=== PATIENT | male | born 1960 | race Caucasian/White ===

== ENCOUNTER 2022-04-01 10:00 | Day surgery (SDC) | payer BC ==
[~2022-04-01 10:00] MED LIST: LACTATED RINGERS 1,000 ML IV SCH
[2022-04-01 11:03] VITALS: TEMP 97
[2022-04-01] MEDS ORDERED: PROPOFOL 10 MG/ML 20 ML VIAL IV ONE (12:23)
--- NOTE | 2022-04-01 12:39 | P.PCN ---
Date of Procedure: 04/01/22 Procedure(s) Performed: BRIEF HISTORY: Patient is a 62-year-old pleasant 8 male scheduled for an elective colonoscopy as a part of gaining for colorectal rectal neoplasia. PROCEDURE PERFORMED: Colonoscopy. PREOPERATIVE DIAGNOSIS: Screening for colon cancer. IV sedation per Anesthesia. PROCEDURE: After informed consent was obtained, the patient, was brought into the endoscopy unit. IV sedation was administered by Anesthesia under continuous monitoring. Digital rectal examination was normal. Initially the Olympus CF-160 flexible video colonoscope was then inserted in the rectum, gradually advanced into the cecum without any difficulty. Careful examination was performed as the scope was gradually being withdrawn. Ileocecal valve and the appendiceal orifice were visualized and appeared normal. Prep was fair. Mucosa of the cecum, ascending colon, transverse colon, descending colon, sigmoid colon, and rectum appeared normal. Retroflexion was performed in the rectum and no lesions were seen. The patient tolerated the procedure well. IMPRESSION: Normal-appearing colon from rectum to cecum no evidence of colorectal neoplasia . RECOMMENDATIONS: Findings of this examination were discussed with the patient as well as his family. He was advised to have a repeat screening colonoscopy in 10 years..
[2022-04-01 12:45] VITALS: BP 91/54; PULSE 56; RESP 12
== END 2022-04-01 13:13 | disposition home or self-care (01) ==
LOC: ORWHC2ENDO 10:00
PROVIDERS: ATTEND Internal Medicine Gastroenterology
DX: Z12.11 Encounter for screening for malignant neoplasm of colon (principal)
CPT/HCPCS: 45378; J2704

== ENCOUNTER 2024-06-09 08:48 | Day surgery (SDC) | payer BC, OTHER ==
[2024-06-08 09:03] VITALS: BMI 21.7
[~2024-06-09 08:48] MED LIST changes: +ALPRAZolam 0.25 MG TAB PO PRN; +ALPRAZolam 0.5 MG TAB PO PRN; -LACTATED RINGERS 1,000 ML IV SCH; +NITROGLYCERIN SL TABS 0.4 MG TAB SUBLINGUAL PRN
[2024-06-09] MEDS: IV FLUID CONTINUATION 1,000 ML IV ONE (09:22)
[2024-06-09] MEDS: SODIUM CHLORIDE 0.9% 1,000 ML in EMPTY BAG 1 BAG IV SCH ×2 (09:22→14:25)
[2024-06-09] MEDS: ASPIRIN 325 MG TAB PO STA (09:33)
[2024-06-09] MEDS: ATORVASTATIN 80 MG TAB PO STA (09:33)
[2024-06-09 10:01] LABS: Basophils % (A) 1 %; Eosinophils # (A) 0.2 k/uL (0-0.7); Eosinophils % (A) 4 %; HCT 38.6 % (39.0-53.0); HGB 13.1 gm/dL (13.0-17.5); Lymphocytes # (A) 1.1 k/uL (1.0-4.8); Lymphocytes % (A) 18 %; MCH 33.2 pg (25.0-35.0); MCV 97.4 fL (80.0-100.0); Mean Platelet Volume 7.9; Monocytes # (A) 0.3 k/uL (0-1.0); Monocytes % (A) 5 %; Neutrophils # (A) 4.4 k/uL (1.3-7.7); Neutrophils % (A) 71 %; Platelet Count 224 k/uL (150-450); RBC 3.96 m/uL (4.30-5.90); RDW 12.9 % (11.5-15.5); WBC 6.2 k/uL (3.8-10.6)
[2024-06-09 10:14] LABS: African American GFR (CKD) >90 (>60 ml/min/1.73 sqM); Anion Gap 4 mmol/L; Blood Urea Nitrogen 21 mg/dL (9-20); Calcium 9.3 mg/dL (8.4-10.2); Carbon Dioxide 30 mmol/L (22-30); Chloride 103 mmol/L (98-107); Glucose 96 mg/dL (74-99); Non-African American GFR(CKD) 88 (>60 ml/min/1.73 sqM); Potassium 4.5 mmol/L (3.5-5.1); Sodium 137 mmol/L (137-145)
[2024-06-09] MEDS: MIDAZOLAM 2 MG/2 ML VIAL IVP ONE ×2 (10:38→12:48)
[2024-06-09] MEDS: LIDOCAINE 1% INJ 10MG/ML (20 ML MDV) SQ ONE (10:41)
[2024-06-09] MEDS: fentaNYL (PF) 50 MCG/ML 2 ML AMP IVP ONE (10:41)
[2024-06-09] MEDS: IOPAMIDOL-370 100ML BTL INJ ONE ×2 (10:45→13:10)
--- NOTE | 2024-06-09 11:56 | CC ---
CARDIAC CATHETERIZATION REPORT INDICATION: Abnormal stress test with ischemic cardiomyopathy showing an ejection fraction of 35%. PROCEDURE NOTE: After obtaining informed consent, left heart catheterization and coronary angiogram were performed via the right radial artery using standard Chari catheters. The patient tolerated the procedure well without any obvious immediate complications. The patient received moderate sedation. Total sedation time was 10 minutes. Right radial artery access was obtained using Seldinger technique. A 6-Ghanaian sheath was placed. Catheters and wires were floated into the ascending aorta under fluoroscopic guidance. The patient received verapamil and heparin per protocol. FINDINGS: 1. HEMODYNAMICS: The left ventricular end-diastolic pressure is 8 to 10 mm. There is no significant gradient across the aortic valve. 2. Left ventriculogram: Left ventriculogram is not performed. 3. ANGIOGRAPHIC DATA: a.Right coronary artery: Right coronary artery is a normal-sized vessel and is free of stenosis. b.Left main coronary artery is a normal-sized vessel and is free of stenosis. Divides into left anterior descending coronary artery and circumflex coronary artery. LAD and its branches are free of significant stenosis. Circumflex coronary artery shows a focal 70% to 80% stenosis. CONCLUSION: A 70% to 80% focal stenosis involving circumflex coronary artery. PLAN: The patient will undergo angioplasty with stent placement of the same. I discussed these issues with the patient. He understands and is in agreement with the plans. The patient is hypotensive at rest. I am going to decrease the dose of losartan on discharge and we will continue to hold back on beta blockers because of the bradycardia. MMODL / IJN: [id number] /
[2024-06-09] MEDS: HEPARIN SODIUM,PORCINE (1 ML) 2,500 UNIT in SODIUM CHLORIDE 0.9% 250 ML IRRIGATION PRN (12:52)
[2024-06-09] MEDS: HEPARIN SODIUM,PORCINE 10,000 UNIT in SODIUM CHLORIDE 0.9% 1,000 ML IRRIGATION PRN (12:52)
[2024-06-09] MEDS: HEPARIN SODIUM 1,000 UN/ML (10ML VL) IVP ONE (12:57)
[2024-06-09] MEDS: TICAGRELOR 90 MG TAB PO ONE (12:59)
[2024-06-09] MEDS: NITROGLYCERIN 1000MCG/10ML SYRINGE INTRACORON ONE (13:06)
[2024-06-09] MEDS: SODIUM CHLORIDE 0.9% 1,000 ML IV ONE (13:10)
[2024-06-09] MEDS ORDERED: ZOLPIDEM 5 MG TAB PO PRN (13:10)
[2024-06-09] MEDS ORDERED: NITROGLYCERIN SL TABS 0.4 MG TAB SUBLINGUAL PRN (13:10)
[2024-06-09] MEDS ORDERED: ATROPINE SULFATE 0.1 MG/ML 10ML SYRINGE IV PRN (13:10)
[2024-06-09] MEDS ORDERED: RX INFO: IV CONTRAST WAS GIVEN 1 EACH MISC MISCELLANE PRN (13:10)
[2024-06-09] MEDS ORDERED: MAG HYDROX/AL HYDROX/SIMETH 30 ML CUP PO PRN (13:10)
--- NOTE | 2024-06-09 13:14 | P.PCN ---
Date of Procedure: 06/09/24 Operative Findings: PERCUTANEOUS CORONARY INTERVENTION Performing physician Vikas Berger M.D. Procedure Performed: 1. Successful stenting of the ramus intermedius using 5 x 15 mm Xience drug- eluting stent with an excellent angiographic results. 2. Adjunctive use of IVUS Indication: Symptomatic 64-year-old gentleman who underwent a heart catheterization earlier by Dr. Botello and was found to have severe disease involving the ramus intermedius Approach: Right radial artery Complications: None Level of Sedation: Moderate with a sedation length of 19 minutes Procedure Discussion: Please refer to diagnostic heart catheterization was performed. To be anticoagulation was initiated using heparin with continuous ACT monitoring. Subsequently I did engage the left main using JL 3.5 guiding catheter with I did wired there is intermedius using a run-through wire. I did after that IVUS which showed a diameter between 3 to 3.5 mm. The artery was not calcified. I did balloon angioplasty using 2.5 mm balloon before I deployed 3.5 x 15 mm Xience KEVIN where the stent was positioned under fluoroscopy guidance and deployed under fluoroscopy guidance. The final angiogram showed excellent angiographic results and the procedure was performed with no complication Postprocedure Management: 1. Dual antiplatelet therapy using aspirin and Brilinta for at least 6 months 2. Aggressive cholesterol control 3. Risk factors modification
[2024-06-09] MEDS: TICAGRELOR 90 MG TAB PO SCH (19:36)
[2024-06-09 23:57] VITALS: RESP 16
[2024-06-10 07:49] VITALS: BP 117/58; PULSE 63; TEMP 97.2
[2024-06-10] MEDS: ASPIRIN 81 MG PO SCH (07:51)
[2024-06-10] MEDS: LOSARTAN 25 MG TAB PO SCH (07:51)
[2024-06-10] MEDS: ATORVASTATIN 20 MG TAB PO SCH (07:51)
[2024-06-10] MEDS: OXYBUTYNIN XL 5 MG TAB.ER.24 PO SCH (07:51)
[2024-06-10] MEDS: ISOSORBIDE MONONITRATE ER 30 MG TAB.ER.24H PO SCH (07:51)
[2024-06-10] MEDS ORDERED: NON FORMULARY DRUG (Aspirin Ec 81 MG Tablet) PO SCH (09:00)
--- NOTE | 2024-06-10 10:56 | P.DS ---
Providers Attending physician: Francisco Javier Botello Consults: 06/09/24 13:10 Consult Physician Routine Consulting Provider: [facility] Consult Reason/Comments: Post Interventional patient Do you want consulting provider notified?: Already Contacted Primary care physician: Wilfrido Ashraf Hospital Course: This is a 64-year-old male who underwent cardiac catheterization with Dr. Botello revealing 70 to 80% focal stenosis involving the circumflex coronary artery. Patient underwent stenting by Dr. Berger. Patient is doing well post procedure with no complications noted. No complaints of chest pain or shortness of breath. Vital signs are stable. Cath site with pulse present and no hematoma noted. The patient was deemed stable for discharge home today from a cardiac standpoint. Patient will be discharged on dual antiplatelet therapy with aspirin and Brilinta for 6 to 12 months. Additionally he will continue on statin therapy with LDL goal less than 70. Please see EMR for further hospital course details. Discharge diagnosis Coronary artery disease, status post stenting of the circumflex Ischemic cardiomyopathy, 35% Nurse practitioner note has been reviewed by physician. Signing provider agrees with the documented findings, assessment, and plan of care documented by DA[employer] FARM MANAGER as a scribe. Plan - Discharge Summary Discharge Rx Participant: Yes New Discharge Prescriptions: New Ticagrelor [Brilinta] 90 mg PO BID #60 tab Nitroglycerin Sl Tabs [Nitrostat] 0.4 mg SUBLINGUAL Q5M PRN #25 tab PRN Reason: Chest Pain Continue Isosorbide Mononitrate ER [Imdur] 30 mg PO QAM Aspirin EC [Ecotrin Low Dose] 81 mg PO QAM Atorvastatin [Lipitor] 20 mg PO QAM Losartan Potassium 25 mg PO QAM No Action Ibuprofen 600 mg PO TID PRN PRN Reason: Pain oxyBUTYnin chloride [oxyBUTYnin chloride ER] 5 mg PO QAM Discharge Medication List Atorvastatin [Lipitor] 20 mg PO QAM 03/28/22 [History] Ibuprofen 600 mg PO TID PRN 03/28/22 [History] Aspirin EC [Ecotrin Low Dose] 81 mg PO QAM 06/08/24 [History] Isosorbide Mononitrate ER [Imdur] 30 mg PO QAM 06/08/24 [History] Losartan Potassium 25 mg PO QAM 06/08/24 [History] oxyBUTYnin chloride [oxyBUTYnin chloride ER] 5 mg PO QAM 06/08/24 [History] Nitroglycerin Sl Tabs [Nitrostat] 0.4 mg SUBLINGUAL Q5M PRN #25 tab 06/10/24 [Rx] Ticagrelor [Brilinta] 90 mg PO BID #60 tab 06/10/24 [Rx] Follow up Appointment(s)/Referral(s): Francisco Javier Botello MD [STAFF PHYSICIAN] - 06/16/24 2:15 pm (FOLLOW UP APPOINTMENT MADE. ) Patient Instructions/Handouts: After Radial Heart Catheterization (GEN)
== END 2024-06-10 11:34 | disposition home or self-care (01) ==
LOC: CATHCVL 08:48 → 3SCARD 13:08 → CATHCVL 06-10 11:34
PROVIDERS: ATTEND Internal Medicine Cardiovascular Disease
DX: I25.5 Ischemic cardiomyopathy (principal); I95.9 Hypotension, unspecified; Z95.5 Presence of coronary angioplasty implant and graft; F17.210 Nicotine dependence, cigarettes, uncomplicated; Z79.82 Long term (current) use of aspirin; E78.2 Mixed hyperlipidemia; Z79.02 Long term (current) use of antithrombotics/antiplatelets; Z79.899 Other long term (current) drug therapy
CPT/HCPCS: 92978; 93458; 80048; 85025; 99152; C9600; C1769 ×2; C1894; C1753; C1874; C1725; C1887; J2250; J1644 ×4; J2003; J3010; Q9967; J2305

== ENCOUNTER 2024-08-10 14:36 | Observation (INO) | payer OTHER ==
--- NOTE | 2024-08-10 14:52 | ED ---
Chest Pain HPI - General Source: patient, RN notes reviewed Mode of arrival: ambulatory Limitations: no limitations - History of Present Illness MD Complaint: chest pain <Tameka Mcqueen - Last Filed: 08/10/24 14:50> - General Source: patient, RN notes reviewed, old records reviewed <Alber Truong - Last Filed: 08/11/24 00:05> - General Chief Complaint: Chest Pain Stated Complaint: Chest pain Time Seen by Provider: 08/10/24 14:45 - History of Present Illness Initial Comments: Quick Note: This is a 64-year-old male who presents to the emergency department for chest pain. States that 2 days ago at work he developed a sharp centralized chest pain that lasted for a minute. The pain has since resolved, however since then he has felt weak, nauseous, and has no appetite. He did have a cardiac stent placed earlier this year. (Tameka Mcqueen) Patient is a 64-year-old male presents emergency department complaining of chest pain. He has a history of cardiac stents within the last few months. Also history of hyperlipidemia, heart failure. Follows with Dr. Mccoy. Presents emergency department complaining of chest pain for the last 2 days. States it is on the left side of his chest. Had some neck radiation originally with that as well as nausea which is since resolved. He is still having a dull ache that is approximately 1-2 out of 10. States when it was more severe it was higher than 5. B go away but it is not improved. Has also been feeling weak. Denies any fevers, chills, cough. Recent exposure to influenza. Presents for further evaluation at this time.Denies any radiation of the pain currently. (Alber Truong) - Related Data Home Medications Medication Instructions Recorded Confirmed Atorvastatin [Lipitor] 20 mg PO DAILY@59903/28/22 08/10/24 Ibuprofen 600 mg PO DAILY@59903/28/22 08/10/24 Aspirin EC [Ecotrin Low Dose] 81 mg PO DAILY@59906/08/24 08/10/24 Isosorbide Mononitrate ER [Imdur] 30 mg PO DAILY@59906/08/24 08/10/24 Losartan Potassium 25 mg PO DAILY@59906/08/24 08/10/24 oxyBUTYnin chloride [oxyBUTYnin 5 mg PO DAILY@0600 06/08/24 08/10/24 chloride ER] Ibuprofen [Motrin] 600 mg PO DAILY PRN 08/10/24 08/10/24 Nitroglycerin Sl Tabs [Nitrostat] 0.4 mg SL Q5M PRN 08/10/24 08/10/24 Ticagrelor [Brilinta] 90 mg PO BID@0900,2100 08/10/24 08/10/24 Allergies Allergy/AdvReac Type Severity Reaction Status Date / Time No Known Allergies Allergy Verified 08/10/24 18:37 Review of Systems ROS Other: All systems not noted in ROS Statement are negative. <Tameka Mcqueen - Last Filed: 08/10/24 14:50> ROS Other: All systems not noted in ROS Statement are negative. <Alber Truong - Last Filed: 08/11/24 00:05> ROS Statement: Those systems with pertinent positive or pertinent negative responses have been documented in the HPI. Review of Systems: CONST: Denies fever EYES: Denies blurry vision ENT: Denies nasal congestion C/V: Endorses chest pain RESP: Denies shortness of breath GI: Denies abdominal pain : Denies dysuria SKIN: Denies rash. MSK: Denies joint pain. NEURO: Denies headache (Alber Truong) EKG Findings - EKG Comments: EKG Findings:: 12-lead Electrocardiogram Interpretation Note. EKG was reviewed and interpreted by myself. 12-lead ECG performed at 1451 is interpreted by me as revealing sinus bradycardia at a rate of 50 beats per minute. [place] is normal. TN interval is 160 ms, QRS durations 104 ms, QTc is 408 ms.. There were no ST or T wave abnormalities to suggest myocardial ischemia or injury. R wave progression across the precordium was satisfactory. By my interpretation this EKG is non-diagnostic for acute ischemia. - EKG Results: EKG: interpreted by ERMD <Alber Truong - Last Filed: 08/11/24 00:05> Past Medical History Past Medical History: Heart Failure, Hyperlipidemia, Liver Disease Additional Past Medical History / Comment(s): See Dr. Mccoy H+P. elevated liver enzymes. voiding frequently at night. fingers are cool at times makes pulse ox low. arthritis in fingers. Hx shingles. "Apparently he has had a heart attack, but we don't know when." History of Any Multi-Drug Resistant Organisms: None Reported Past Surgical History: Back Surgery Additional Past Surgical History / Comment(s): Surgery to lt eye r/t injury. Colonoscopy. Past Anesthesia/Blood Transfusion Reactions: No Reported Reaction Additional Past Anesthesia/Blood Transfusion Reaction / Comment(s): no blood transfusions to date. Past Psychological History: No Psychological Hx Reported Smoking Status: Former smoker Past Alcohol Use History: Occasional Past Drug Use History: Marijuana - Past Family History Father Family Medical History: Hypertension Additional Family Medical History / Comment(s): vascular issues Mother Family Medical History: Thyroid Disorder Additional Family Medical History / Comment(s): goiter. <Tameka Mcqueen - Last Filed: 08/10/24 14:50> General Exam Limitations: no limitations <Tameka Mcqueen - Last Filed: 08/10/24 14:50> <Alber Truong - Last Filed: 08/11/24 00:05> - General Exam Comments Initial Comments: Visual Physical Exam Vital signs reviewed General: Well-appearing, nontoxic, no acute distress. Head: Normocephalic, atraumatic Eyes: PERRLA, EOMI ENT: Airway patent Chest: Nonlabored breathing Skin: No visual rash, normal skin tone Neuro: Alert and oriented 3 Musculoskeletal: No gross abnormalities (Tameka Mcqueen) General: Appears in no acute distress. HEAD: Normal with no signs of head trauma. EYES: EOMI ENT: Hearing grossly intact, normal oropharynx. RESPIRATORY: Clear breath sounds bilaterally. No wheezes, rales, or rhonchi. C/V: Regular rate and rhythm. S1 and S2 auscultated, no edema, peripheral pulses 2+ and intact throughout ABD: Abd is soft, nontender, nondistended EXT: No obvious deformity. SKIN: No rashes or lesions observed on exposed skin. NEURO: Alert and oriented x 4. (Alber Truong) Course Vital Signs 08/10/24 08/10/24 08/10/24 14:44 17:21 18:28 Temperature 98.4 F Pulse Rate 60 46 L 53 L Pulse Rate [ Pulse Oximetery ] Respiratory 18 18 18 Rate Blood Pressure 108/61 111/68 119/72 Blood Pressure [Left Arm] O2 Sat by Pulse 95 98 97 Oximetry 08/10/24 08/10/24 22:03 22:25 Temperature 98.2 F 97.5 F L Pulse Rate 61 Pulse Rate [ 51 L Pulse Oximetery ] Respiratory 18 20 Rate Blood Pressure 126/80 Blood Pressure 135/70 [Left Arm] O2 Sat by Pulse 97 100 Oximetry Chest Pain [facility] <Tameka Mcqueen - Last Filed: 08/10/24 14:50> <Alber Truong - Last Filed: 08/11/24 00:05> - [facility] I performed the QuickNote portion of this chart. Signed Tameka Mcqueen PA-C. (Tameka Mcqueen) Was pt. sent in by a medical professional or institution (ALECIA Jurado, HR SPECIALIST, urgent care, hospital, or assisted...) When possible be specific @ -No Did you speak to anyone other than the patient for history (EMS, parent, family, police, friend...)? What history was obtained from this source @ -No Did you review nursing and triage notes (agree or disagree)? Why? @ -I reviewed and agree with nursing and triage notes Were old charts reviewed (outside hosp., previous admission, EMS record, old EKG, old radiological studies, urgent care reports/EKG's, assisted records)? Report findings @ -Old charts reviewed including prior EKGs. Compared to EKG from May 2024 with today's EKG. No obvious dynamic changes Differential Diagnosis (chest pain, altered mental status, abdominal pain women, abdominal pain men, vaginal bleeding, weakness, fever, dyspnea, syncope, headache, dizziness, GI bleed, back pain, seizure, CVA, palpatations, mental health, musculoskeletal)? @ -Differential Chest Pain: Stable Angina, Unstable Angina, STEMI, NSTEMI Aortic Dissection, Pneumothorax, Musculoskeletal, Esophageal Spasm GERD, Cholecystitis, Pancreatitis, Zoster, this is not meant to be an all-inclusive list. EKG interpreted by me (3pts min.). @ -As above X-rays interpreted by me (1pt min.). @ -Chest x-ray shows no obvious acute cardiopulmonary process. CT interpreted by me (1pt min.). @ -None done U/S interpreted by me (1pt. min.). @ -None done What testing was considered but not performed or refused? (CT, X-rays, U/S, labs)? Why? @ -None What meds were considered but not given or refused? Why? @ -None Did you discuss the management of the patient with other professionals (professionals i.e. , PA, HR SPECIALIST, lab, RT, psych nurse, social worker psychiatric, customs examiner, teacher, gift officer, director of casework)? Give summary @ -Discussed the case with the admitting provider, Dr. Pan who accepted the admission. Was smoking cessation discussed for >3mins.? @ -No Was critical care preformed (if so, how long)? @ -No Were there social determinants of health that impacted care today? How? (Homelessness, low income, unemployed, alcoholism, drug addiction, transportation, low edu. Level, literacy, decrease access to med. care, intermediate, rehab)? @ -No Was there de-escalation of care discussed even if they declined (Discuss DNR or withdrawal of care, Hospice)? DNR status @ -No What co-morbidities impacted this encounter? (DM, HTN, Smoking, COPD, CAD, Cancer, CVA, ARF, Chemo, Hep., AIDS, mental health diagnosis, sleep apnea, morbid obesity)? @ -CAD, recent cardiac stenting Was patient admitted / discharged? Hospital course, mention meds given and route, prescriptions, significant lab abnormalities, going to OR and other pertinent info. @ -Patient presents emergency department for chest pain in the setting of recent cardiac stents in the last few months. Pain started 2 days ago and was more severe and currently is mild and substernal in nature. No radiation currently. EKG shows no signs of acute ischemia. We will obtain cardiac workup. Patient will be administered nitroglycerin as well as 324 mg of aspirin. Patient was in agreement this plan. EKG shows no signs of acute ischemia. Chest x-ray unremarkable. Laboratory studies unremarkable including undetectable troponin. Patient's chest pain did nearly resolved with the sublingual nitroglycerin therefore Nitropaste will be applied. I discussed results with patient. Due to multiple risk factors, and heart score being at least moderate, patient will be admitted to observation cardiac telemetry for cardiology evaluation. I discussed the case with the admitting provider, Dr. Pan who accepted the admission. Undiagnosed new problem with uncertain prognosis? @ -No Drug Therapy requiring intensive monitoring for toxicity (Heparin, Nitro, Insulin, Cardizem)? @ -No Were any procedures done? @ -No Diagnosis/symptom? @ -Chest pain Acute, or Chronic, or Acute on Chronic? @ -Acute Uncomplicated (without systemic symptoms) or Complicated (systemic symptoms)? @ -Complicated Side effects of treatment? @ -No Exacerbation, Progression, or Severe Exacerbation? @ -No Poses a threat to life or bodily function? How? (Chest pain, [place], [place], pneumonia, PE, COPD, DKA, ARF, appy, cholecystitis, CVA, Diverticulitis, Homicidal, Suicidal, threat to staff... and all critical care pts) @ -Potentially, yes (Alber Truong) Disposition <Tameka Mcqueen - Last Filed: 08/10/24 14:50> Time of Disposition: 17:45 <Alber Truong - Last Filed: 08/11/24 00:05> Clinical Impression: Chest pain Disposition: ADMITTED IP TO THIS HOSP Condition: Stable
--- NOTE | 2024-08-10 16:14 | XR ---
EXAMINATION TYPE: XR chest 2V DATE OF EXAM: 08/10/2024 CLINICAL INDICATION: Male, 64 years old with history of Chest Pain, TECHNIQUE: Frontal and lateral views of the chest are obtained. COMPARISON: None FINDINGS: There is no focal air space opacity, pleural effusion, or pneumothorax seen. The cardiac silhouette size is within normal limits. Old posterior lateral left seventh rib fracture is present. IMPRESSION: No acute process. [facility], , 08/10/2024 4:12 PM
[2024-08-10] MEDS: SODIUM CHLORIDE 0.9% 1,000 ML IV ONE (16:28)
[2024-08-10] MEDS: ASPIRIN 81 MG PO STA (16:29)
[2024-08-10] MEDS: NITROGLYCERIN SL TABS 0.4 MG TAB SUBLINGUAL STA (16:29)
[2024-08-10 16:41] LABS: Basophils % (A) 0 %; Eosinophils # (A) 0.3 k/uL (0-0.7); Eosinophils % (A) 4 %; HCT 41.2 % (39.0-53.0); HGB 13.5 gm/dL (13.0-17.5); Lymphocytes # (A) 1.3 k/uL (1.0-4.8); Lymphocytes % (A) 16 %; MCH 32.3 pg (25.0-35.0); MCHC 32.8 g/dL (31.0-37.0); MCV 98.4 fL (80.0-100.0); Mean Platelet Volume 7.5; Monocytes # (A) 0.4 k/uL (0-1.0); Monocytes % (A) 5 %; Neutrophils # (A) 5.9 k/uL (1.3-7.7); Neutrophils % (A) 73 %; Platelet Count 221 k/uL (150-450); RBC 4.19 m/uL (4.30-5.90); WBC 8.1 k/uL (3.8-10.6)
[2024-08-10 16:50] LABS: INR 1.1 (<1.2); Partial Thromboplastin Time 22.4 sec (22.0-30.0); Prothrombin Time 11.5 sec (10.0-12.5)
[2024-08-10 16:58] LABS: ALT 29 U/L (4-49); AST 25 U/L (17-59); African American GFR (CKD) >90 (>60 ml/min/1.73 sqM); Albumin 3.9 g/dL (3.5-5.0); Alkaline Phosphatase 38 U/L (38-126); Anion Gap 5 mmol/L; Blood Urea Nitrogen 20 mg/dL (9-20); Calcium 9.2 mg/dL (8.4-10.2); Carbon Dioxide 27 mmol/L (22-30); Chloride 104 mmol/L (98-107); Glucose 98 mg/dL (74-99); Non-African American GFR(CKD) >90 (>60 ml/min/1.73 sqM); Potassium 3.9 mmol/L (3.5-5.1); Sodium 136 mmol/L (137-145); Total Bilirubin 0.7 mg/dL (0.2-1.3); Total Protein 6.6 g/dL (6.3-8.2)
[2024-08-10 17:15] LABS: Influenza A Not Detected (Not Detectd); Influenza B Not Detected (Not Detectd); RSV Not Detected (Not Detectd)
[2024-08-10] MEDS: NITROGLYCERIN OINT 1 INCH/GM PACKET TOPICAL SCH (17:22)
[2024-08-10] MEDS ORDERED: NALOXONE 0.4 MG/ML 1 ML VIAL IV PRN (17:55)
[2024-08-10] MEDS ORDERED: IBUPROFEN 600 MG TAB PO PRN (21:08)
[2024-08-10] MEDS: TICAGRELOR 90 MG TAB PO SCH (21:56)
[2024-08-11] MEDS: ATORVASTATIN 20 MG TAB PO SCH (06:08)
[2024-08-11] MEDS: ASPIRIN 81 MG PO SCH (06:08)
[2024-08-11] MEDS: ISOSORBIDE MONONITRATE ER 30 MG TAB.ER.24H PO SCH (06:08)
[2024-08-11] MEDS: LOSARTAN 25 MG TAB PO SCH (06:08)
[2024-08-11] MEDS: IBUPROFEN 600 MG TAB PO SCH (06:09)
[2024-08-11] MEDS: OXYBUTYNIN XL 5 MG TAB.ER.24 PO SCH (06:10)
[2024-08-11 07:40] VITALS: BP 89/46; PULSE 54; RESP 16; TEMP 98
[2024-08-11 08:40] LABS: Basophils # (A) 0.05 X 10*3/uL (0.00-0.10); Basophils % (A) 0.8 %; Eosinophils # (A) 0.43 X 10*3/uL (0.04-0.35); Eosinophils % (A) 7.2 %; HCT 39.8 % (39.6-50.0); HGB 13.4 g/dL (13.0-17.0); Lymphocytes % (A) 26.7 %; MCH 33.6 pg (27.0-32.0); MCHC 33.7 g/dL (32.0-37.0); MCV 99.7 FL (80.0-97.0); Mean Platelet Volume 10.3 FL (9.5-12.2); Monocytes # (A) 0.53 X 10*3/uL (0.20-1.00); Monocytes % (A) 8.8 %; NRBC Per 100 WBC 0 X 10*3/uL (0.00-0.01); Neutrophils # (A) 3.36 X 10*3/uL (1.80-7.70); Neutrophils % (A) 56.2 %; Platelet Count 193 X 10*3/uL (140-440); RBC 3.99 X 10*6/uL (4.40-5.60); RDW 13.2 % (11.5-14.5); WBC 5.99 X 10*3/uL (4.50-10.00)
[2024-08-11 09:44] LABS: ALT 25 U/L (10-49); AST 20 U/L (14-35); Albumin 3.7 g/dL (3.8-4.9); Albumin/Globulin Ratio 1.48 Ratio (1.60-3.17); Alkaline Phosphatase 39 U/L (41-126); BUN/Creat Ratio 18.88 Ratio (12.00-20.00); Blood Urea Nitrogen 15.1 mg/dL (9.0-27.0); Calcium 8.5 mg/dL (8.7-10.3); Carbon Dioxide 23.2 mmol/L (21.6-31.8); Chloride 106 mmol/L (96-109); Globulin 2.5 g/dL (1.6-3.3); Glucose 102 mg/dL (70-110); Potassium 4.1 mmol/L (3.5-5.5); Sodium 140 mmol/L (135-145); Total Bilirubin 0.4 mg/dL (0.3-1.2); Total Protein 6.2 g/dL (6.2-8.2)
--- NOTE | 2024-08-11 09:44 | P.CRDCN ---
History of Present Illness History of present illness: HISTORY OF PRESENT ILLNESS: This is a 64-year-old male with a past medical history significant for coronary artery disease with previous stenting, hypertension, and hyperlipidemia. Patient follows in the office with Dr. Botello. We have been asked to see the patient in consultation for chest pain. Patient examined at the bedside. Patient presented to the hospital for chief complaint of chest discomfort. Patient states that he was working outside when he began to have chest discomfort. The patient's pain appears to be musculoskeletal in nature. At the time of examination he denies any chest pain or shortness of breath. Vital signs are stable. DIAGNOSTICS: - EKG reveals sinus mechanism with no signs of acute ischemia. - Chest xray negative for acute process - Laboratory data: WBC 5.99. Hemoglobin 13.4. Platelet count 193. Sodium 136. Potassium 3.9. BUN 20. Creatinine 0.88. Troponin negative x 3. - Current home cardiac medications include Brilinta 90 mg twice a day, losartan 25 mg daily, Imdur 30 mg daily, Lipitor 20 mg daily, aspirin 81 mg daily - Cardiac catheterization history: 06/09/2024 with stenting of the ramus intermedius REVIEW OF SYSTEMS: At the time of my exam: CONSTITUTIONAL: Denies fever or chills. HEENT: Denies blurred vision, vision changes, or eye pain. Denies hemoptysis CARDIOVASCULAR: Denies chest pain. Denies orthopnea. Denies PND. Denies palpitations RESPIRATORY: Denies shortness of breath. GASTROINTESTINAL: Denies abdominal pain. Denies nausea or vomiting. HEMATOLOGIC: Denies bleeding disorders. GENITOURINARY: Denies any blood in urine. SKIN: Denies pruitis. Denies rash. PHYSICAL EXAM: VITAL SIGNS: Reviewed. GENERAL: Well-developed in no acute distress. HEENT: Head is normocephalic. Pupils are equal, round. Sclerae anicteric. Mucous membranes of the mouth are moist. Neck supple. No JVD or thyromegaly LUNGS: Respirations even and unlabored. Lungs essentially clear to auscultation bilaterally. HEART: Regular rate and rhythm. S1 and S2 heard. ABDOMEN: Soft. Nondistended. Nontender. EXTREMITIES: Normal range of motion. No clubbing or cyanosis. Peripheral pulses intact. No lower extremity edema NEUROLOGIC: Awake and alert. Oriented x 3. ASSESSMENT: Chest pain, appears musculoskeletal in nature, troponin negative x 3 Coronary artery disease with previous stenting of the ramus intermedius, 06/09/2024 Ischemic cardiomyopathy, 35% Hypertension Hyperlipidemia PLAN: An acute coronary event has been ruled out Resume home cardiac medications No further inpatient recommendations from a cardiac standpoint Patient may be discharged home today and follow-up in the office with Dr. Botello Nurse practitioner note has been reviewed by physician. Signing provider agrees with the documented findings, assessment, and plan of care documented by TICKET TAKER as a scribe. Past Medical History Past Medical History: Heart Failure, Hyperlipidemia, Liver Disease Additional Past Medical History / Comment(s): See Dr. Darius De La Cruz. elevated liver enzymes. voiding frequently at night. arthritis in fingers. Hx shingles. "Apparently he has had a heart attack, but we don't know when." recent stent placement with janae. History of Any Multi-Drug Resistant Organisms: None Reported Past Surgical History: Back Surgery, Heart Catheterization With Stent Additional Past Surgical History / Comment(s): Surgery to lt eye r/t injury. Colonoscopy. Past Anesthesia/Blood Transfusion Reactions: No Reported Reaction Additional Past Anesthesia/Blood Transfusion Reaction / Comment(s): no blood transfusions to date. Date of Last Stent Placement:: 07/10/2024 Past Psychological History: No Psychological Hx Reported Smoking Status: Former smoker Past Alcohol Use History: Occasional Additional Past Alcohol Use History / Comment(s): smoked for 45 yrs 1ppd, 2022. Drinks a beer x2-3 night. About 12 beers a week. Past Drug Use History: Marijuana Additional Drug Use History / Comment(s): pt smokes marijauna daily - Past Family History Father Family Medical History: Hypertension Additional Family Medical History / Comment(s): vascular issues Mother Family Medical History: Thyroid Disorder Additional Family Medical History / Comment(s): goiter. Medications and Allergies Home Medications Medication Instructions Recorded Confirmed Type Atorvastatin [Lipitor] 20 mg PO DAILY@0600 03/28/22 08/10/24 History Ibuprofen 600 mg PO DAILY@0600 03/28/22 08/10/24 History Aspirin EC [Ecotrin Low Dose] 81 mg PO DAILY@0600 06/08/24 08/10/24 History Isosorbide Mononitrate ER [Imdur] 30 mg PO DAILY@0600 06/08/24 08/10/24 History Losartan Potassium 25 mg PO DAILY@0600 06/08/24 08/10/24 History oxyBUTYnin chloride [oxyBUTYnin 5 mg PO DAILY@0600 06/08/24 08/10/24 History chloride ER] Ibuprofen [Motrin] 600 mg PO DAILY PRN 08/10/24 08/10/24 History Nitroglycerin Sl Tabs [Nitrostat] 0.4 mg SL Q5M PRN 08/10/24 08/10/24 History Ticagrelor [Brilinta] 90 mg PO BID@0900,2100 08/10/24 08/10/24 History Allergies Allergy/AdvReac Type Severity Reaction Status Date / Time No Known Allergies Allergy Verified 08/10/24 18:37 Physical Exam Vitals: Vital Signs Temp Pulse Pulse Resp BP BP BP 08/11/24 07:10 98.0 F 54 L 16 89/46 08/11/24 01:25 97.4 F L 62 18 100/59 08/10/24 23:00 51 L 08/10/24 22:25 97.5 F L 51 L 20 135/70 08/10/24 22:03 98.2 F 61 18 126/80 08/10/24 18:28 53 L 18 119/72 08/10/24 17:21 46 L 18 111/68 08/10/24 14:44 98.4 F 60 18 108/61 Pulse Ox 08/11/24 07:10 99 08/11/24 01:25 98 08/10/24 23:00 08/10/24 22:25 100 08/10/24 22:03 97 08/10/24 18:28 97 08/10/24 17:21 98 08/10/24 14:44 95 Intake and Output 08/10/24 08/11/24 08/11/24 22:59 06:59 14:59 Other: # Voids 2 Weight 77.111 kg Results 08/11/24 05:03 08/10/24 16:23 Cardiac Enzymes 08/10/24 08/10/24 08/10/24 Range/Units 16:23 16:23 19:41 AST 25 (17-59) U/L Troponin I <0.012 <0.012 (0.000-0.034) ng/mL 08/10/24 Range/Units 22:30 AST (17-59) U/L Troponin I <0.012 (0.000-0.034) ng/mL Coagulation 08/10/24 Range/Units 16:23 PT 11.5 (10.0-12.5) sec APTT 22.4 (22.0-30.0) sec CBC 08/10/24 08/11/24 Range/Units 16:23 05:03 WBC 8.1 5.99 (3.8-10.6) k/uL RBC 4.19 L 3.99 L (4.30-5.90) m/uL Hgb 13.5 13.4 (13.0-17.5) gm/dL Hct 41.2 39.8 (39.0-53.0) % Plt Count 221 193 (150-450) k/uL Comprehensive Metabolic Panel 08/10/24 Range/Units 16:23 Sodium 136 L (137-145) mmol/L Potassium 3.9 (3.5-5.1) mmol/L Chloride 104 (98-107) mmol/L Carbon Dioxide 27 (22-30) mmol/L BUN 20 (9-20) mg/dL Creatinine 0.88 (0.66-1.25) mg/dL Glucose 98 (74-99) mg/dL Calcium 9.2 (8.4-10.2) mg/dL AST 25 (17-59) U/L ALT 29 (4-49) U/L Alkaline Phosphatase 38 (38-126) U/L Total Protein 6.6 (6.3-8.2) g/dL Albumin 3.9 (3.5-5.0) g/dL Current Medications Generic Name Dose Route Start Last Admin Trade Name Freq PRN Reason Stop Dose Admin Aspirin 81 mg 08/11/24 06:00 08/11/24 06:08 Aspirin 81 Mg PO 81 mg DAILY@0600 [facility] Administration Atorvastatin Calcium 20 mg 08/11/24 06:00 08/11/24 06:08 Atorvastatin 20 Mg Tab PO 20 mg DAILY@0600 [facility] Administration Ibuprofen 600 mg 08/11/24 06:00 08/11/24 06:09 Ibuprofen 600 Mg Tab PO Not Given DAILY@0600 [facility] Ibuprofen 600 mg 08/10/24 21:08 Ibuprofen 600 Mg Tab PO DAILY PRN Pain Isosorbide Mononitrate 30 mg 08/11/24 06:00 08/11/24 06:08 Isosorbide Mononitrate Er 30 Mg Tab.Er.24h PO 30 mg DAILY@0600 [facility] Administration Losartan Potassium 25 mg 08/11/24 06:00 08/11/24 06:08 Losartan 25 Mg Tab PO 25 mg DAILY@0600 [facility] Administration Naloxone HCl 0.2 mg 08/10/24 17:55 Naloxone 0.4 Mg/Ml 1 Ml Vial IV Q2M PRN Opioid Reversal Nitroglycerin 0.5 inch 08/10/24 17:15 08/11/24 09:31 Nitroglycerin Oint 1 Inch/Gm Packet TOPICAL Not Given Q8HR [facility] Oxybutynin Chloride 5 mg 08/11/24 06:00 08/11/24 06:10 Oxybutynin Xl 5 Mg Tab.Er.24 PO 5 mg DAILY@0600 [facility] Administration Ticagrelor 90 mg 08/10/24 21:30 08/11/24 09:31 Ticagrelor 90 Mg Tab PO 90 mg BID@0900,2100 [facility] Administration Intake and Output 08/10/24 08/11/24 08/11/24 22:59 06:59 14:59 Other: # Voids 2 Weight 77.111 kg 08/11/24 05:03 08/10/24 16:23
--- NOTE | 2024-08-11 11:17 | P.DS ---
Providers Date of admission: 08/10/24 17:55 Attending physician: Cooper Pan MD Consults: 08/10/24 17:55 Consult Physician Routine Consulting Provider: [facility] Consult Reason/Comments: chest pain Do you want consulting provider notified?: Yes Primary care physician: Wilfrido Ashraf Plan - Discharge Summary New Discharge Prescriptions: Continue Isosorbide Mononitrate ER [Imdur] 30 mg PO DAILY@0600 Aspirin EC [Ecotrin Low Dose] 81 mg PO DAILY@0600 Ticagrelor [Brilinta] 90 mg PO BID@0900,2099 Atorvastatin [Lipitor] 20 mg PO DAILY@0600 Ibuprofen 600 mg PO DAILY@0600 oxyBUTYnin chloride [oxyBUTYnin chloride ER] 5 mg PO DAILY@0600 Losartan Potassium 25 mg PO DAILY@0600 Ibuprofen [Motrin] 600 mg PO DAILY PRN PRN Reason: Pain Nitroglycerin Sl Tabs [Nitrostat] 0.4 mg SL Q5M PRN PRN Reason: Chest Pain Discharge Medication List Atorvastatin [Lipitor] 20 mg PO DAILY@0600 03/28/22 [History] Ibuprofen 600 mg PO DAILY@0600 03/28/22 [History] Aspirin EC [Ecotrin Low Dose] 81 mg PO DAILY@0600 06/08/24 [History] Isosorbide Mononitrate ER [Imdur] 30 mg PO DAILY@0600 06/08/24 [History] Losartan Potassium 25 mg PO DAILY@0600 06/08/24 [History] oxyBUTYnin chloride [oxyBUTYnin chloride ER] 5 mg PO DAILY@0600 06/08/24 [History] Ibuprofen [Motrin] 600 mg PO DAILY PRN 08/10/24 [History] Nitroglycerin Sl Tabs [Nitrostat] 0.4 mg SL Q5M PRN 08/10/24 [History] Ticagrelor [Brilinta] 90 mg PO BID@0900,2100 08/10/24 [History] Follow up Appointment(s)/Referral(s): Wilfrido Ashraf [Primary Care Provider] - 1-2 days Patient Instructions/Handouts: Chest Pain (DC) Discharge Disposition: HOME SELF-CARE
--- NOTE | 2024-08-11 11:18 | P.HPIM ---
History of Present Illness H&P Date: 08/11/24 Chief Complaint: Chest pain Patient is a 64-year-old male with a history of CAD status post stent on 06/09/2024, hypertension and hyperlipidemia presents to the ER yesterday with complaint of midsternal chest pain which he describes as stabbing type, 8 out of 10, nonradiating, constant, not associated with nausea or vomiting or diaphoresis. Patient states that he was at work when he experienced the pain and was worried and came to the ER for further evaluation. He recently had a PCI of the ramus intermedius on 06/09/[address] Botello. Patient denies any shortness of breath, swelling of the legs, numbness or weakness upper lower extremities. At time of interview, patient is experiencing 1 out of 10 minimal chest pain. Patient denies any recent upper respiratory tract infection. Initial lab work shows WBC 8.1, hemoglobin 13.5, platelet count 221, sodium 136, potassium 3.9, creatinine 0.88, BUN 20, AST 25, ALT 29, troponin <0.012 (trending flat <0.012, <0.012). Chest x-ray shows no acute cardiopulmonary process. EKG shows sinus bradycardia with ventricular rate of 50 bpm, [place] intervals 160 ms, QRS duration 104 ms, QTc [address]-T wave changes noted. Vital signs on arrival temperature 98.4 F, pulse rate 60, respiratory 18, blood pressure 108/61, oxygen saturation 95% on room air Review of systems: Pertinent positives and negatives as discussed in HPI, a complete review of systems was performed and all other systems are negative. Physical examination: Vital signs reviewed General: non toxic, no distress, appears at stated age, normal weight Derm: no unusual rashes/lesions, warm Head: atraumatic, normocephalic, symmetric Eyes: EOMI, no lid lag, anicteric sclera, pupils equal round reactive to light ENT: Nose and ears atraumatic Neck: No cervical lymphadenopathy, trachea midline, supple Mouth: no lip lesion, mucus membranes moist Cardiovascular: S1S2 reg, no murmur, positive dorsalis pedis pulse bilateral, no edema Lungs: CTA bilateral, no rhonchi, no rales, no accessory muscle use Abdominal: soft, nontender to palpation, no guarding Ext: muscle strength 5 out of 5 in all 4 extremities grossly, no gross muscle atrophy, no contractures, Neuro: CN II-XI grossly intact, no gross focal neuro deficits Psych: Alert, oriented, appropriate affect Assessment/Plan: This is a Patient is a 64-year-old male with a history of CAD status post stent on 06/09/2024, hypertension and hyperlipidemia presents to the ER yesterday with complaint of midsternal chest pain . Case was discussed with the Emergency Room provider and decision was made to admit the patient for chest pain, rule out ACS Labs and images: Initial lab work shows WBC 8.1, hemoglobin 13.5, platelet count 221, sodium 136, potassium 3.9, creatinine 0.88, BUN 20, AST 25, ALT 29, troponin <0.012 (trending flat <0.012, <0.012). Chest x-ray shows no acute cardiopulmonary process. EKG shows sinus bradycardia with ventricular rate of 50 bpm, [place] intervals 160 ms, QRS duration 104 ms, QTc [address]-T wave changes noted. Active: #Chest pain, rule out ACS Low heart score with the risk of Mace of 0.9 to 1.7% Patient received aspirin 325 mg in ED Continue with aspirin 81 mg Oxygen therapy as needed Nitroglycerin sublingual as needed Resume Lipitor 20 mg p.o. daily, Imdur 30 mg p.o. daily, Cozaar 25 mg p.o. daily, Brilinta 90 mg p.o. twice daily Consult cardiology Continue cardiac monitoring Heart healthy diet Order lipid panel and TSH Chronic conditions: Hypertension, hyperlipidemia, CAD status post stenting Resume home medications DVT prophylaxis: SCDs GI prophylaxis: None F: None none E: Replete as needed N: Heart healthy diet A: Ambulatory The patient is admitted with an anticipated less than than 2 midnight stay for evaluation of chest pain, rule out ACS CODE STATUS: Full code Discussed with: Patient Anticipated discharge place: Pending clinical course Dictation was produced using [employer] dictation software. Please excuse any grammatical, word or spelling errors. Attestation/ Cremator Note: Attestation to History and physical, Participation I saw and evaluated the patient with the Resident, and I reviewed and discussed the patient with the Resident and agree with the Resident's findings and plans as documented above., management reviewed and discussed, I agree with findings & plan, Provider Signature : INOCENCIA WANG MD Past Medical History Past Medical History: Heart Failure, Hyperlipidemia, Liver Disease Additional Past Medical History / Comment(s): See Dr. Darius De La Cruz. elevated liver enzymes. voiding frequently at night. arthritis in fingers. Hx shingles. "Apparently he has had a heart attack, but we don't know when." recent stent placement with tumma. History of Any Multi-Drug Resistant Organisms: None Reported Past Surgical History: Back Surgery, Heart Catheterization With Stent Additional Past Surgical History / Comment(s): Surgery to lt eye r/t injury. Colonoscopy. Past Anesthesia/Blood Transfusion Reactions: No Reported Reaction Additional Past Anesthesia/Blood Transfusion Reaction / Comment(s): no blood transfusions to date. Date of Last Stent Placement:: 07/10/2024 Past Psychological History: No Psychological Hx Reported Smoking Status: Former smoker Past Alcohol Use History: Occasional Additional Past Alcohol Use History / Comment(s): smoked for 45 yrs 1ppd, 2022. Drinks a beer x2-3 night. About 12 beers a week. Past Drug Use History: Marijuana Additional Drug Use History / Comment(s): pt smokes marijauna daily - Past Family History Father Family Medical History: Hypertension Additional Family Medical History / Comment(s): vascular issues Mother Family Medical History: Thyroid Disorder Additional Family Medical History / Comment(s): goiter. Medications and Allergies Home Medications Medication Instructions Recorded Confirmed Type Atorvastatin [Lipitor] 20 mg PO DAILY@0600 03/28/22 08/10/24 History Ibuprofen 600 mg PO DAILY@0600 03/28/22 08/10/24 History Aspirin EC [Ecotrin Low Dose] 81 mg PO DAILY@0606/08/24 08/10/24 History Isosorbide Mononitrate ER [Imdur] 30 mg PO DAILY@00 06/08/24 08/10/24 History Losartan Potassium 25 mg PO DAILY@59906/08/24 08/10/24 History oxyBUTYnin chloride [oxyBUTYnin 5 mg PO DAILY@00 06/08/24 08/10/24 History chloride ER] Ibuprofen [Motrin] 600 mg PO DAILY PRN 08/10/24 08/10/24 History Nitroglycerin Sl Tabs [Nitrostat] 0.4 mg SL Q5M PRN 08/10/24 08/10/24 History Ticagrelor [Brilinta] 90 mg PO BID@0900,2100 08/10/24 08/10/24 History Allergies Allergy/AdvReac Type Severity Reaction Status Date / Time No Known Allergies Allergy Verified 08/10/24 18:37 Physical Exam Vitals: Vital Signs Temp Pulse Pulse Resp BP BP BP 08/11/24 07:10 98.0 F 54 L 16 89/46 08/11/24 01:25 97.4 F L 62 18 100/59 08/10/24 23:00 51 L 08/10/24 22:25 97.5 F L 51 L 20 135/70 08/10/24 22:03 98.2 F 61 18 126/80 08/10/24 18:28 53 L 18 119/72 08/10/24 17:21 46 L 18 111/68 08/10/24 14:44 98.4 F 60 18 108/61 Pulse Ox 08/11/24 07:10 99 08/11/24 01:25 98 08/10/24 23:00 08/10/24 22:25 100 08/10/24 22:03 97 08/10/24 18:28 97 08/10/24 17:21 98 08/10/24 14:44 95 Intake and Output 08/10/24 08/11/24 08/11/24 22:59 06:59 14:59 Intake Total 360 Balance 360 Intake: Oral 360 Other: # Voids 2 Weight 77.111 kg Results CBC & Chem 7: 08/11/24 05:03 08/11/24 05:03 Labs: Abnormal Lab Results - Last 24 Hours (Table) 08/10/24 08/10/24 08/11/24 Range/Units 16:23 16:23 05:03 RBC 4.19 L 3.99 L (4.30-5.90) m/uL MCV 99.7 H (80.0-97.0) FL MCH 33.6 H (27.0-32.0) pg Eosinophils # 0.43 H (0.04-0.35) X 10*3/uL Sodium 136 L (137-145) mmol/L Calcium (8.7-10.3) mg/dL Alkaline Phosphatase (41-126) U/L Albumin (3.8-4.9) g/dL Albumin/Globulin Ratio (1.60-3.17) Ratio 03// Range/Units 05:03 RBC (4.30-5.90) m/uL MCV (80.0-97.0) FL MCH (27.0-32.0) pg Eosinophils # (0.04-0.35) X 10*3/uL Sodium (137-145) mmol/L Calcium 8.5 L (8.7-10.3) mg/dL Alkaline Phosphatase 39 L (41-126) U/L Albumin 3.7 L (3.8-4.9) g/dL Albumin/Globulin Ratio 1.48 L (1.60-3.17) Ratio Thrombosis Risk Factor Assmnt - Choose All That Apply Any of the Below Risk Factors Present?: Yes Other Risk Factors: Yes Each Risk Factor Represents 2 Points: Age 61-74 years Other congenital or acquired thrombophilia - If yes, enter type in comment: No Thrombosis Risk Factor Assessment Total Risk Factor Score: 2 Thrombosis Risk Factor Assessment Level: Low Risk
--- NOTE | 2024-08-11 11:20 | P.DS ---
Providers Date of admission: 08/10/24 17:55 Attending physician: Cooper Pan MD Consults: 08/10/24 17:55 Consult Physician Routine Consulting Provider: [facility] Consult Reason/Comments: chest pain Do you want consulting provider notified?: Yes Primary care physician: Wilfrido Ashraf Hospital Course: Discharge Diagnosis: #Chest pain, ACS rule out Hospital Course: Patient is a 64-year-old male with a history of CAD status post stent on 06/09/2024, hypertension and hyperlipidemia presents to the ER yesterday with complaint of midsternal chest pain which he describes as stabbing type, 8 out of 10, non radiating, constant, not associated with nausea or vomiting or diaphoresis. Patient states that he was at work when he experienced the pain and was worried and came to the ER for further evaluation. He recently had a PCI of the ramus intermedius on 06/09/[address] Botello. Patient denies any shortness of breath, swelling of the legs, numbness or weakness upper lower extremities. At time of interview, patient is experiencing 1 out of 10 minimal chest pain. Patient denies any recent upper respiratory tract infection. Initial lab work shows WBC 8.1, hemoglobin 13.5, platelet count 221, sodium 136, potassium 3.9, creatinine 0.88, BUN 20, AST 25, ALT 29, troponin <0.012 (trending flat <0.012, <0.012). Chest x-ray shows no acute cardiopulmonary process. EKG shows sinus bradycardia with ventricular rate of 50 bpm, [place] intervals 160 ms, QRS duration 104 ms, QTc [address]-T wave changes noted. Vital signs on arrival temperature 98.4 F, pulse rate 60, respiratory 18, blood pressure 108/61, oxygen saturation 95% on room air Cardiology was consulted. Acute coronary syndrome has been ruled out. Patient will follow-up with Dr. Botello at his office. No changes to medications have been made. Patient advised to continue with his home medications as directed. Discharge disposition: Home with self-care Vital signs reviewed. Gen: in no apparent distress, resting comfortably in bed Eyes: PERRLA, EOMI, no scleral injection or icterus HENT: normocephalic, atraumatic, good hearing acuity, moist mucous membranes Neck: full range of motion Resp: CTAB, no rales, rhonchi, or wheezes CVS: normal S1 and S2, no murmurs, rubs or gallops, no edema GI: soft, NTTP, ND, no hepatosplenomegaly : no suprapubic tenderness, no CVAT, valentine catheter is not present MSK: no clubbing, no cyanosis, no noted contractures of extremities Skin: no noted rashes, petechiae; temperature of skin is appropriate Neuro: moving all extremities without signs of weakness, CN II-XII intact Psych: cooperative, euthymic mood, insight and judgment intact Dictation was produced using [employer] dictation software. Please excuse any grammatical, word or spelling errors. Attestation/ Roll Dough Divider Note: Attestation to D/C Summary, Participation I saw and evaluated the patient with the Resident, and I reviewed and discussed the patient with the Resident and agree with the Resident's findings and plans as documented above, management reviewed and discussed, I agree with findings & plan, Provider Signature - INOCENCIA WANG MD Patient Condition at Discharge: Stable Plan - Discharge Summary New Discharge Prescriptions: Continue Isosorbide Mononitrate ER [Imdur] 30 mg PO DAILY@0600 Aspirin EC [Ecotrin Low Dose] 81 mg PO DAILY@0600 Ticagrelor [Brilinta] 90 mg PO BID@0900,2100 Atorvastatin [Lipitor] 20 mg PO DAILY@0600 Ibuprofen 600 mg PO DAILY@0600 oxyBUTYnin chloride [oxyBUTYnin chloride ER] 5 mg PO DAILY@0600 Losartan Potassium 25 mg PO DAILY@0600 Ibuprofen [Motrin] 600 mg PO DAILY PRN PRN Reason: Pain Nitroglycerin Sl Tabs [Nitrostat] 0.4 mg SL Q5M PRN PRN Reason: Chest Pain Discharge Medication List Atorvastatin [Lipitor] 20 mg PO DAILY@0600 03/28/22 [History] Ibuprofen 600 mg PO DAILY@0603/28/22 [History] Aspirin EC [Ecotrin Low Dose] 81 mg PO DAILY@0606/08/24 [History] Isosorbide Mononitrate ER [Imdur] 30 mg PO DAILY@0606/08/24 [History] Losartan Potassium 25 mg PO DAILY@0606/08/24 [History] oxyBUTYnin chloride [oxyBUTYnin chloride ER] 5 mg PO DAILY@0600 06/08/24 [History] Ibuprofen [Motrin] 600 mg PO DAILY PRN 08/10/24 [History] Nitroglycerin Sl Tabs [Nitrostat] 0.4 mg SL Q5M PRN 08/10/24 [History] Ticagrelor [Brilinta] 90 mg PO BID@0900,2100 08/10/24 [History] Follow up Appointment(s)/Referral(s): Wilfrido Ashraf [Primary Care Provider] - 1-2 days Patient Instructions/Handouts: Chest Pain (DC) Discharge Disposition: HOME SELF-CARE
[2024-08-12 13:43] LABS: Chol/HDL Ratio 2.46 Ratio; LDL Cholesterol,Calculated 55.6 mg/dL (0.0-131.0)
== END 2024-08-11 11:25 | disposition home or self-care (01) ==
LOC: EC 14:36 → 6NMEDSUR 17:55
PROVIDERS: ADMIT Internal Medicine; ATTEND Internal Medicine
DX: R07.89 Other chest pain (principal); I25.5 Ischemic cardiomyopathy; I25.10 Atherosclerotic heart disease of native coronary artery without angina pectoris; I11.0 Hypertensive heart disease with heart failure; I50.9 Heart failure, unspecified; R00.1 Bradycardia, unspecified; E78.5 Hyperlipidemia, unspecified; Z79.82 Long term (current) use of aspirin; Z79.899 Other long term (current) drug therapy; Z79.02 Long term (current) use of antithrombotics/antiplatelets; Z95.5 Presence of coronary angioplasty implant and graft; Z20.828 Contact with and (suspected) exposure to other viral communicable diseases; Z87.891 Personal history of nicotine dependence
CPT/HCPCS: 96360; 96361; 99285; 36415; 93005; 80061; 80053 ×2; 84443; 83735; 84484; 85025 ×2; 85610; 85730; 87636; 71046; G0378 ×2